=== PATIENT | male | born 1990 | race Caucasian/White ===

== ENCOUNTER 2020-12-18 22:05 | Emergency (ER) | payer OTHER ==
[~2020-12-18] VITALS: Ht 175.3 cm; Wt 96.9 kg
[2020-12-18 22:06] VITALS: BP 122/81
[2020-12-18] MEDS ORDERED: HYDR-3713 PO (23:14)
--- NOTE | 2020-12-18 23:14 | REPVR ---
PROCEDURE INFORMATION: Exam: XR Right Toe(s) Exam date and time: 12/18/2020 10:53 PM Age: 30 years old Clinical indication: Pain; Toes; Right; Additional info: Struck foot on a tube at [employer] [employer] [facility] TECHNIQUE: Imaging protocol: XR Right toes. Views: Minimum 2 views. COMPARISON: No relevant prior studies available. FINDINGS: Soft tissue swelling over the lateral aspect of the forefoot. Acute appearing oblique fractures through the base of the 5th distal phalanx, nondisplaced. No underlying osseous lesion. Proximal phalanx and metatarsal are intact and the 1st through 4th rays show no acute deformities. No Lisfranc joint malalignment IMPRESSION: Acute nondisplaced oblique fracture through the proximal aspect of the 5th distal phalanx Electronically signed by: Miles Martinez On 12/18/2020 23:14:40 PM
[2020-12-18] MEDS ORDERED: NORCO 5/325MG TABLET (BULK FOR ED) PO ONE (23:20)
== END 2020-12-18 23:51 | disposition home or self-care (01) ==
LOC: M ED 22:05
DX: S92.534A Nondisplaced fracture of distal phalanx of right lesser toe(s), initial encounter for closed fracture (principal); X58.XXXA Exposure to other specified factors, initial encounter; Y92.830 Public park as the place of occurrence of the external cause; Y93.89 Activity, other specified; Y99.8 Other external cause status